=== PATIENT | female | born 1960 | race Caucasian/White ===

== ENCOUNTER 2018-09-18 14:40 | Emergency (ER) | payer BC ==
[2018-09-18] MEDS ORDERED: Metoprolol Tartrate 50 MG Tab PO ONE (14:56)
[2018-09-18 15:23] LABS: CHLORIDE,CL 101 mmol/L (98-107); SODIUM,NA 139 mmol/L (136-145)
--- NOTE | 2018-09-18 16:35 | EDM.PDOC ---
ED HPI GENERAL MEDICAL PROBLEM - General Chief Complaint: Cardiovascular Problem Stated Complaint: dizziness, HTN Time Seen by Provider: 09/18/18 15:04 Source of Information: Reports: Patient History Limitations: Reports: No Limitations - History of Present Illness INITIAL COMMENTS - FREE TEXT/NARRATIVE: Patient came to ER for evaluation due to elevated BP. Has history of poorly controlled HTN. Noted to have systolic of 190 three weeks ago when seen at an urgent care s/p fall. Evaluated, had EKG performed. Told to follow up with her provider. No changes in meds at that time. Provider currently has patient on two different forms of Lisinopril. Did get started on thyroid replacement about 1 1/2 weeks ago. No other med changes. No change in level of stress. No identifiable factors as far as triggers for worsening BP readings other than gradual weight gain since May (about 15 pounds) Has intermittent issues with vertigo and this has been acting up recently. Able to get around easily/only mildly affected. Had headache earlier but took her migraine medication and the headache resolved. No other neuro changes reported. Eating and drinking well. ROS otherwise negative. Treatments [employer]: Reports: Other (see below) Other Treatments [employer]: migraine medication taken [employer]- Zolmitriptan - Related Data Allergies Allergy/AdvReac Type Severity Reaction Status Date / Time amlodipine Allergy Swelling Verified 09/18/18 14:55 rofecoxib [From Vioxx] Allergy Diarrhea Verified 09/18/18 14:55 Home Meds: Home Meds Fluticasone Propionate [Flonase] 2 sprays MARCE DAILY 09/18/18 [History] Levothyroxine 112 mcg PO DAILY 09/18/18 [History] Lisinopril 20 mg PO QPM 09/18/18 [History] Lisinopril/Hydrochlorothiazide [Lisinopril-Hctz 20-25 mg Tab] 1 each PO QAM 08/04 [History] Metoprolol Tartrate 25 mg PO ASDIRECTED #10 tablet 09/18/18 [Rx] Potassium Chloride 20 meq PO DAILY 09/18/18 [History] Sertraline [Zoloft] 150 mg PO DAILY 09/18/18 [History] ZOLMitriptan [Zomig] 5 mg PO ASDIRECTED PRN 09/18/18 [History] atorvaSTATin [Lipitor] 10 mg PO DAILY 09/18/18 [History] Past Medical History HEENT History: Reports: Hard of Hearing, Other (See Below) Other HEENT History: hay fever Cardiovascular History: Reports: High Cholesterol, Hypertension Gastrointestinal History: Reports: None, Other (See Below) Other Genitourinary History: hx urinary sling Neurological History: Reports: Migraines Psychiatric History: Reports: Depression Endocrine/Metabolic History: Reports: Hypothyroidism, Obesity/BMI 30+ Dermatologic History: Reports: Eczema - Infectious Disease History Infectious Disease History: Reports: Chicken Pox - Past Surgical History HEENT Surgical History: Reports: Laser Surgery GI Surgical History: Reports: Appendectomy Female Surgical History: Reports: Hysterectomy Social & Family History - Family History Family Medical History: Noncontributory - Tobacco Use Smoking Status *Q: Never Smoker Second Hand Smoke Exposure: Yes - Caffeine Use Caffeine Use: Reports: Coffee Other Caffeine Use: 1 per day - Recreational Drug Use Recreational Drug Use: No ED ROS GENERAL - Review of Systems Review Of Systems: ROS reveals no pertinent complaints other than HPI. ED EXAM, GENERAL - Physical Exam Exam: See Below Exam Limited By: No Limitations General Appearance: Alert, WD/WN, No Apparent Distress, Obese Eye Exam: Bilateral Eye: EOMI, PERRL Ears: Normal External Exam Nose: No: Nasal Deformity, Nasal Swelling, Nasal Drainage Throat/Mouth: Normal Lips, Normal Voice, No Airway Compromise Head: Atraumatic, Normocephalic Neck: Supple, Non-Tender Respiratory/Chest: No Respiratory Distress, Lungs Clear, Normal Breath Sounds, No Accessory Muscle Use Cardiovascular: Regular Rate, Rhythm, No Murmur Peripheral Pulses: 2+: Radial (L), Radial (R) GI/Abdominal: Normal Bowel Sounds, Soft, Non-Tender, No Distention (Female) Exam: Deferred Rectal (Female) Exam: Deferred Back Exam: Normal Inspection. No: CVA Tenderness (L), CVA Tenderness (R) Extremities: Normal Inspection, Normal Range of Motion, Non-Tender, No Pedal Edema, Normal Capillary Refill Neurological: Alert, Oriented, CN II-XII Intact, Normal Cognition, Normal Gait, No Motor/Sensory Deficits Psychiatric: Normal Affect, Normal Mood Skin Exam: Warm, Dry, Intact, Normal Color Course - Vital Signs Last Recorded V/S: Last Vital Signs Temp 36.8 C 09/18/18 15:03 Pulse 70 09/18/18 16:15 Resp 16 09/18/18 15:03 BP 165/83 H 09/18/18 16:15 Pulse Ox 97 09/18/18 16:15 - Orders/Labs/Meds Labs: Laboratory Tests 09/18/18 09/18/18 09/18/18 Range/Units 15:05 15:05 15:05 WBC 9.5 (4.0-10.2) K/uL RBC 5.35 H (3.77-5.09) M/uL Hgb 14.3 (11.7-15.5) g/dL Hct 44.0 (34.0-46.0) % MCV 82.2 L (84.0-98.0) fL MCH 26.7 L (28.2-33.3) pg MCHC 32.5 (31.7-36.0) g/dL RDW 14.8 H (11.2-14.1) % Plt Count 267 (150-350) K/uL Neut % (Auto) 71.0 (45.0-80.0) % Lymph % (Auto) 19.5 (10.0-50.0) % Cecil % (Auto) 7.2 (2.0-14.0) % Eos % (Auto) 1.7 (0.0-5.0) % Baso % (Auto) 0.6 (0.0-2.0) % Neut # (Auto) 6.74 (1.40-7.00) K/uL Lymph # (Auto) 1.85 (0.50-3.50) K/uL Cecil # (Auto) 0.68 (0.00-1.00) K/uL Eos # (Auto) 0.16 (0.00-0.50) K/uL Baso # (Auto) 0.06 (0.00-0.20) K/uL Sodium 139 (136-145) mmol/L Potassium 4.1 (3.5-5.1) mmol/L Chloride 101 (98-107) mmol/L Carbon Dioxide 29.1 (21.0-32.0) mmol/L BUN 16 (7-18) mg/dL Creatinine 0.67 (0.51-1.17) mg/dL Est Cr Clr Drug Dosing TNP Estimated GFR (MDRD) > 60 mL/min Glucose 90 (74-106) mg/dL Calcium 9.4 (8.5-10.1) mg/dL Magnesium 2.2 (1.8-2.4) mg/dL Total Bilirubin 0.7 (0.2-1.0) mg/dL AST 36 (15-37) U/L ALT 41 (12-78) U/L Alkaline Phosphatase 153 H (46-116) IU/L Total Protein 8.0 (6.4-8.2) g/dL Albumin 3.7 (3.4-5.0) g/dL Free T4 (0.76-1.46) ng/dL TSH, Ultra Sensitive (0.358-3.740) mIU/mL Specimen Type Urine Color Urine Appearance Urine pH (5.0-9.0) Ur Specific [place] (1.005-1.030) Urine Protein (NEGATIVE) mg/dL Urine Glucose (UA) (NEGATIVE) mg/dL Urine Ketones (NEGATIVE) mg/dL Urine Occult Blood (NEGATIVE) Urine Nitrite (NEGATIVE) Urine Bilirubin (NEGATIVE) Urine Urobilinogen (0.2-1.0) E.U./dL Ur Leukocyte Esterase (NEGATIVE) Urine RBC /HPF Urine WBC /HPF Ur Epithelial Cells /LPF Urine Bacteria (NONE TO FEW) /HPF 09/18/18 09/18/18 09/18/18 Range/Units 15:05 15:05 16:30 WBC (4.0-10.2) K/uL RBC (3.77-5.09) M/uL Hgb (11.7-15.5) g/dL Hct (34.0-46.0) % MCV (84.0-98.0) fL MCH (28.2-33.3) pg MCHC (31.7-36.0) g/dL RDW (11.2-14.1) % Plt Count (150-350) K/uL Neut % (Auto) (45.0-80.0) % Lymph % (Auto) (10.0-50.0) % Cecil % (Auto) (2.0-14.0) % Eos % (Auto) (0.0-5.0) % Baso % (Auto) (0.0-2.0) % Neut # (Auto) (1.40-7.00) K/uL Lymph # (Auto) (0.50-3.50) K/uL Cecil # (Auto) (0.00-1.00) K/uL Eos # (Auto) (0.00-0.50) K/uL Baso # (Auto) (0.00-0.20) K/uL Sodium (136-145) mmol/L Potassium (3.5-5.1) mmol/L Chloride (98-107) mmol/L Carbon Dioxide (21.0-32.0) mmol/L BUN (7-18) mg/dL Creatinine (0.51-1.17) mg/dL Est Cr Clr Drug Dosing Estimated GFR (MDRD) mL/min Glucose (74-106) mg/dL Calcium (8.5-10.1) mg/dL Magnesium (1.8-2.4) mg/dL Total Bilirubin (0.2-1.0) mg/dL AST (15-37) U/L ALT (12-78) U/L Alkaline Phosphatase (46-116) IU/L Total Protein (6.4-8.2) g/dL Albumin (3.4-5.0) g/dL Free T4 1.03 (0.76-1.46) ng/dL TSH, Ultra Sensitive 3.831 H (0.358-3.740) mIU/mL Specimen Type Urinblad Urine Color Yellow Urine Appearance Clear Urine pH 7.0 (5.0-9.0) Ur Specific [place] 1.015 (1.005-1.030) Urine Protein Negative (NEGATIVE) mg/dL Urine Glucose (UA) Negative (NEGATIVE) mg/dL Urine Ketones Negative (NEGATIVE) mg/dL Urine Occult Blood Trace-intact H (NEGATIVE) Urine Nitrite Negative (NEGATIVE) Urine Bilirubin Negative (NEGATIVE) Urine Urobilinogen 0.2 (0.2-1.0) E.U./dL Ur Leukocyte Esterase Trace H (NEGATIVE) Urine RBC 0-5 /HPF Urine WBC 0-5 /HPF Ur Epithelial Cells Rare /LPF Urine Bacteria Rare (NONE TO FEW) /HPF Meds: Medications Discontinued Medications Generic Name Dose Route Start Last Admin Trade Name Freq PRN Reason Stop Dose Admin Metoprolol Tartrate 50 mg 09/18/18 14:56 09/18/18 15:01 Lopressor PO 09/18/18 14:57 50 mg ONETIME ONE Administration - Re-Assessments/Exams Free Text/Narrative Re-Assessment/Exam: Patient given Metoprolol 50mg. Observed. CBC/Chem/Mg/t4/UA overall unremarkable. TSH remains slightly elevated. BP improved to much better range. Plan for now is to send patient home with additional Metoprol to be taken every 12 hours IF systolic exceeds 180 or diastolic exceeds 100. She is to hold her thyroid medication for 3 days and is to check her BP 2-3 times daily and keep a record. After 3 days she is to add back they thyroid medication and see if there appears to be any impact on BP trends. To make follow up appointment with primary provider in approximately 7-10 days to review readings. Precautions reviewed. She is to return to the ER if BP trends upwards again, or if she notices neuro changes. Extensive time spend reviewing lifestyle modifications that should help combat the hypertension. Departure - Departure Time of Disposition: 16:29 Disposition: Home, Self-Care 01 Condition: Good Clinical Impression: Hypertensive heart disease Qualifiers: Heart failure presence: unspecified whether heart failure present Qualified Code(s): I11.9 - Hypertensive heart disease without heart failure Prescriptions: Metoprolol Tartrate 25 mg PO ASDIRECTED #10 tablet Referrals: Abida Kinney PA-C [Primary Care Provider] - Forms: ED Department Discharge Additional Instructions: Take your BP randomly 2-3 times a day and keep a diary of readings. Do not take your Thyroid for 3 days while doing this. Start taking your Thyroid meds again on Friday and see if the pattern of readings changes. Follow up with your primary provider for continued care and medication adjustments as needed. Start recommended dietary changes immediately as they should help you with the hypertension in general (as discussed) Follow up in the ER if problems return over the weekend. If BP top reading is over 180, or lower number is over 100, take one Metoprolol tablet every 12 hours. CoQ10 100-200mg daily recommended.
== END 2018-09-18 17:00 | disposition home or self-care (01) ==
LOC: LL.ED 14:40
DX: I11.9 Hypertensive heart disease without heart failure (principal); E78.00 Pure hypercholesterolemia, unspecified; E03.9 Hypothyroidism, unspecified; Z79.899 Other long term (current) drug therapy; Z77.22 Contact with and (suspected) exposure to environmental tobacco smoke (acute) (chronic); Z88.8 Allergy status to other drugs, medicaments and biological substances
CPT/HCPCS: 36415; 80053; 81001; 83735; 84439; 84443; 85025; 99283; A9270-GY